=== PATIENT | female | born 1965 | race Caucasian/White ===

== ENCOUNTER → 2018-04-25 17:15 | Outpatient (CLI) | payer BC, SELFPAY | PROVIDERS: PCP Family Medicine; Visit Provider Specialist | DX: G47.30 Sleep apnea, unspecified (principal); R06.83 Snoring; G47.33 Obstructive sleep apnea (adult) (pediatric) | CPT/HCPCS: 95806 ==

== ENCOUNTER → 2019-12-11 14:21 | Outpatient (CLI) | payer OTHER, SELFPAY ==
[2019-12-11 15:01] LABS: Basophils % 0.6 % (0.1-2.0); Eosinophils # 0.1 K/mm3 (0.0-0.4); Eosinophils % 0.8 % (0.1-12.0); Hematocrit 45.2 % (37.0-47.0); Hemoglobin 15.2 g/dL (12.2-16.2); Lymphocytes # 2.4 K/mm3 (0.7-4.5); Lymphocytes % 32.4 % (10-50); Mean Corpuscular HGB Conc 33.7 g/dL (31.8-35.4); Mean Corpuscular Hemoglobin 30.6 pg (27.0-31.2); Mean Platelet Volume 8.5 fl (7.4-10.4); Monocytes # 0.3 K/mm3 (0.1-1.0); Monocytes % 3.9 % (1.7-9.3); Neutrophils # 4.6 K/mm3 (1.8-7.8); Neutrophils % 62.2 % (37.0-80.0); Platelet Count 189 K/mm3 (142-424); Red Blood Count 4.96 M/mm3 (4.20-5.40); Red Cell Distribution Width 13.1 % (11.5-17.5); White Blood Count 7.3 K/mm3 (4.8-10.8)
[2019-12-11 17:27] LABS: Adenovirus,PCR Not Detected (NotDetected); Bordetella Pertussis Not Detected (NotDetected); Chlamydophila Pneumoniae, PCR Not Detected (NotDetected); Coronavirus 19, PCR Not Detected (NotDetected); Coronavirus 229E Not Detected (NotDetected); Coronavirus NL63 Not Detected (NotDetected); Coronavirus OC43 Not Detected (NotDetected); Coronovirus HKU1,PCR Not Detected (NotDetected); Human Metapneumovirus Not Detected (NotDetected); Influenza A, PCR Not Detected (NotDetected); Influenza AH1, 2009 Not Detected (NotDetected); Influenza AH1, PCR Not Detected (NotDetected); Influenza AH3,PCR Not Detected (NotDetected); Influenza B, PCR Not Detected (NotDetected); Mycoplasma Pneumoniae, PCR Not Detected (NotDetected); Parainfluenza 1, PCR Not Detected (NotDetected); Parainfluenza 2, PCR Not Detected (NotDetected); Parainfluenza 3, PCR Not Detected (NotDetected); Parainfluenza 4, PCR Not Detected (NotDetected); Respiratory Syncytial Virus Not Detected (NotDetected); Rhinovirus/Enterovirus Not Detected (NotDetected)
== END ==
PROVIDERS: PCP Family Medicine; Visit Provider Nurse Practitioner Family
DX: Z03.818 Encounter for observation for suspected exposure to other biological agents ruled out (principal)
CPT/HCPCS: 85025; 87581; 87633; 87798; U0003

== ENCOUNTER → 2020-09-09 11:58 | Outpatient (CLI) | payer BC, SELFPAY ==
[2020-09-09 13:18] LABS: Adenovirus,PCR Not Detected (NotDetected); Bordetella Pertussis Not Detected (NotDetected); Chlamydophila Pneumoniae, PCR Not Detected (NotDetected); Coronavirus 19, PCR Not Detected (NotDetected); Coronavirus 229E Not Detected (NotDetected); Coronavirus NL63 Not Detected (NotDetected); Coronavirus OC43 Not Detected (NotDetected); Coronovirus HKU1,PCR Not Detected (NotDetected); Human Metapneumovirus Not Detected (NotDetected); Influenza A, PCR Not Detected (NotDetected); Influenza AH1, 2009 Not Detected (NotDetected); Influenza AH1, PCR Not Detected (NotDetected); Influenza AH3,PCR Not Detected (NotDetected); Influenza B, PCR Not Detected (NotDetected); Mycoplasma Pneumoniae, PCR Not Detected (NotDetected); Parainfluenza 1, PCR Not Detected (NotDetected); Parainfluenza 2, PCR Not Detected (NotDetected); Parainfluenza 4, PCR Not Detected (NotDetected); Respiratory Syncytial Virus Not Detected (NotDetected); Rhinovirus/Enterovirus Not Detected (NotDetected)
[2020-09-09 13:31] LABS: Basophils # 0.1 K/mm3 (0-0.2); Basophils % 1.3 % (0.1-2.0); Eosinophils # 0.2 K/mm3 (0.0-0.4); Eosinophils % 2.9 % (0.1-12.0); Hematocrit 45.6 % (37.0-47.0); Hemoglobin 15.6 g/dL (12.2-16.2); Lymphocytes # 1.7 K/mm3 (0.7-4.5); Lymphocytes % 32.5 % (10-50); Mean Corpuscular HGB Conc 34.1 g/dL (31.8-35.4); Mean Corpuscular Hemoglobin 30.6 pg (27.0-31.2); Mean Corpuscular Volume 89.7 fl (81-99); Mean Platelet Volume 8.8 fl (7.4-10.4); Monocytes # 0.3 K/mm3 (0.1-1.0); Monocytes % 6.4 % (1.7-9.3); Neutrophils % 56.8 % (37.0-80.0); Platelet Count 173 K/mm3 (142-424); Red Blood Count 5.09 M/mm3 (4.20-5.40); Red Cell Distribution Width 13.3 % (11.5-17.5); White Blood Count 5.3 K/mm3 (4.8-10.8)
[2020-09-09 15:38] LABS: Parainfluenza 3, PCR Detected (NotDetected)
== END ==
PROVIDERS: PCP Family Medicine; Visit Provider Nurse Practitioner Family
DX: Z20.822 Contact with and (suspected) exposure to COVID-19 (principal); J12.2 Parainfluenza virus pneumonia
CPT/HCPCS: 36415; 85025; 87581; 87633; 87798

== ENCOUNTER 2020-09-10 14:23 | Emergency (ER) | payer BC, SELFPAY ==
[2020-09-10 14:24] VITALS: BP 187/100; PULSE 97; RESP 18; TEMP 37.1; O2SAT 96; BMI 25.8
[2020-09-10 14:43] VITALS: BP 171/100; PULSE 97; RESP 16; TEMP 37.1; O2SAT 97; BMI 25.8
--- NOTE | 2020-09-10 15:10 | HMH.EDUTC ---
[facility] [place] Clinical Impression: Lower back pain Qualifiers: Chronicity: unspecified Back pain laterality: right Sciatica presence: with sciatica Sciatica laterality: sciatica of right side Qualified Code(s): M54.41 - Lumbago with sciatica, right side Disposition: Home, Self-Care Condition on Discharge: Good Instructions: Sciatica, DI for Sciatica, DI for Back Pain With Sciatica, Methocarbamol, Etodolac Additional Instructions: *Etodalac every 8 hours with meal as needed for pain/inflammation *Not additional anti-inflammatory like Ibuprofen motrin, aleve, advil with the above amount of Etodolac. You can still take Tylenol every 4 hours as needed if you need something else for pain *Ice 20 minutes every 2 hours for the first 48 hours after the initial injury followed by moist heat every 20 minutes 3-4 times a day to affected area *Muscle relaxer as prescribed as needed for muscle spasms but remember, it WILL cause drowsiness You cannot take it and drive, operate machinery or care for small children. *Keep this area active, no movement leads to more stiffness, However take it easy and avoid heavy lifting pushing or pulling *Follow up with you family doctor if no improvement for further treatment Soaks in warm water with epson salt may help with pain and muscle aches Return if needed Straight to ER if any life threatening symptoms Prescriptions: Etodolac 200 mg PO Q8HP PRN #15 cap PRN Reason: Moderate Pain Transmission Status: Received by [id number] methocarbamoL [Methocarbamol 500mg Tablet] 500 mg PO BID PRN #10 tab PRN Reason: Muscle Spasm Transmission Status: Received by [id number] Benzonatate [Tessalon Perle 100mg Cap*] 100 mg PO TID PRN #15 cap PRN Reason: Cough Transmission Status: Received by [id number] Referrals: Blake Lantigua MD [Primary Care Provider] - Time of Disposition: 15:21 Medical Decision Making - Saulo Inquiry Pt receiving controlled substance: No Saulo was queried for this patient: No Vital Signs: 09/10/20 14:24 09/10/20 14:43 09/10/20 15:19 Temperature 98.7 F 98.7 F 98.7 F Temperature Source Oral Oral Pulse Rate 97 H Pulse Rate [Right] 97 H 97 H Respiratory Rate 18 16 18 Blood Pressure 171/100 H Blood Pressure [Right Arm] 187/100 H 171/100 H Blood Pressure Mean [Right Arm] 129 123 02 Sat by Pulse Oximetry 96 97 Oxygen Delivery Method Room Air Orders (Tests/Meds): ED MEDICATIONS Discontinued Medications Generic Name Dose Route Start Last Admin Trade Name Vivek PRN Reason Stop Dose Admin Methylprednisolone Sodium Succinate 125 mg 09/10/20 15:18 09/10/20 15:18 Methylprednisolone Sod Succ 125mg Vial IM 09/10/20 15:19 125 mg ONCE ONE Administration Medical Decision Narrative: Discussed Xray of Lspine due to over the age of 51 and patient declined State that she would follow up with her PCP and get a xray if no improvement after medication Patient reports that she took Ibuprofen about 2 hours prior to arrival [facility] [place] - General Stated complaint: muscle pain in back/leg Time Seen by Provider: 09/10/20 15:10 Mode of Arrival: Ambulatory Source of Information: Patient Limitations: No Limitations Description of Symptoms (Recalled from Triage Doc. by RN): pt c/o lower back pain radiating down her R leg. the pain occured after a bad coughing episode yesterday evening. pt is ambulating, but reports pain 08/22. HEENT Symptoms (Recalled from RN notes): No Resp Symptoms (Recalled from RN notes): No Skin Symptoms (Recalled from RN notes): No MS Symptoms (Recalled from RN notes): Yes (lower back pain radiating down R leg) Functional Status (Recalled from RN notes): na - History of Present Illness Provider Complaint: Patient states that she has had a cold and had a bad cough States that she was coughing yesterday when she felt like she pulled something in her right lower back area State that then she started having achy
[2020-09-10 15:19] VITALS: BP 171/100; PULSE 97; RESP 18; TEMP 37.1
== END 2020-09-10 15:36 | disposition home or self-care (01) ==
PROVIDERS: Emergency Provider Nurse Practitioner; PCP Family Medicine
DX: M54.41 Lumbago with sciatica, right side (principal); F17.210 Nicotine dependence, cigarettes, uncomplicated; B34.8 Other viral infections of unspecified site
CPT/HCPCS: 96372; 99202; G0463

== ENCOUNTER 2020-09-13 11:58 | Emergency (ER) | payer BC, SELFPAY ==
[2020-09-13 11:58] VITALS: BP 185/105; PULSE 97; RESP 16; TEMP 36.8; O2SAT 97; BMI 25.8
[2020-09-13 13:17] VITALS: PULSE 97; RESP 16; TEMP 36.8; O2SAT 97; BMI 25.8
--- NOTE | 2020-09-13 13:22 | HMH.EDUTC ---
[facility] [place]position Clinical Impression: Low back pain Qualifiers: Chronicity: acute Back pain laterality: left Sciatica presence: with sciatica Sciatica laterality: sciatica of left side Qualified Code(s): M54.42 - Lumbago with sciatica, left side Disposition: Home, Self-Care Condition on Discharge: Good Instructions: Low Back Pain, DI for Low Back Pain Additional Instructions: Continue taking the oral steroids that you are on. Stop the etodolac and the methocarbimol (robaxin). Take the naproxen and the cyclobenzaprine instead. The cyclobenzaprine will make you drowsy, so don't operate heavy machinery or drive a car afterwards. Follow up with your regular doctor. No heavy lifting. No twisting. GO TO THE ER FOR ANY WORSENING SYMPTOMS OR CONCERN, ESPECIALLY BOWEL OR BLADDER ISSUES, SADDLE AREA NUMBNESS, FEVER, ETC Prescriptions: Cyclobenzaprine HCl [Cyclobenzaprine 10mg Tab] 10 mg PO BIDP PRN #30 tab PRN Reason: Muscle Spasm Transmission Status: Received by [id number] Naproxen [Naproxen 500mg tab] 500 mg PO BIDP PRN #30 tab PRN Reason: Moderate Pain Transmission Status: Received by [id number] Referrals: Blake Lantigua MD [Primary Care Provider] - Time of Disposition: 14:10 Medical Decision Making - Medical Records Medical records reviewed: No: I reviewed the patient's medical records. - Saulo Inquiry Pt receiving controlled substance: No Vital Signs: 09/13/20 11:58 09/13/20 13:17 09/13/20 14:26 Temperature 98.2 F 98.2 F 98.3 F Temperature Source Oral Oral Pulse Rate 85 Pulse Rate [Radial] 97 H 97 H Respiratory Rate 16 16 16 Blood Pressure 164/100 H Blood Pressure [Right Arm] 185/105 H Blood Pressure Mean [Right Arm] 131 02 Sat by Pulse Oximetry 97 97 Orders (Tests/Meds): ED MEDICATIONS Discontinued Medications Generic Name Dose Route Start Last Admin Trade Name Freq PRN Reason Stop Dose Admin Ketorolac Tromethamine 60 mg 09/13/20 14:00 09/13/20 14:15 Ketorolac 60mg/2ml Vial IM 09/13/20 14:01 60 mg ONCE ONE Administration [facility] [place] HPI - General Stated complaint: back pain Time Seen by Provider: 09/13/20 13:23 Mode of Arrival: Ambulatory Source of Information: Patient Limitations: No Limitations Description of Symptoms (Recalled from Triage Doc. by RN): pt c/o pain in her lower R back that radiates to her R hip and leg. pt was seen here a few days ago and treated with methocarbomol, steroids and etodolac. pt states the pain is getting worse and feels like electrical shocks. HEENT Symptoms (Recalled from RN notes): No Resp Symptoms (Recalled from RN notes): No Skin Symptoms (Recalled from RN notes): No MS Symptoms (Recalled from RN notes): Yes (R lower back pain radiating to her hip and leg.) Functional Status (Recalled from RN notes): na - History of Present Illness Provider Complaint: She c/o continued low back pain. She states that the steroid shot that she got here 3 days ago did help, but her pain returned and the oral medication that she is on is not working very well. - Related Data Home Medications Medication Instructions Recorded Confirmed amlodipine 2.5 mg tablet 2.5 mg PO DAILY 11/29/18 04/24/19 atorvastatin 80 mg tablet 80 mg PO DAILY 11/29/18 04/24/19 isosorbide mononitrate 60 mg 60 mg PO DAILY 11/29/18 04/24/19 tablet,extended release 24 hr Previous Rx's Medication Instructions Recorded sulfamethoxazole 800 1 tab PO Q12H 10 Days #20 tab 04/24/19 mg-trimethoprim 160 mg tablet Benzonatate [Tessalon Perle 100mg 100 mg PO TID PRN #15 cap 09/10/20 Cap*] Etodolac 200 mg PO Q8HP PRN #15 cap 09/10/20 methocarbamoL [Methocarbamol 500mg 500 mg PO BID PRN #10 tab 09/10/20 Tablet] Cyclobenzaprine HCl 10 mg PO BIDP PRN #30 tab 09/13/20 [Cyclobenzaprine 10mg Tab] Naproxen [Naproxen 500mg tab] 500 mg PO BIDP PRN #30 tab 09/13/20 Allergies Allergy/AdvReac Type Severity Nelsonia
--- NOTE | 2020-09-13 13:33 | XR_ITS ---
PROCEDURE INFORMATION: Exam: XR Lumbosacral Spine Exam date and time: 09/13/2020 1:33 PM Age: 55 years old Clinical indication: Injury or trauma; Fall; Blunt trauma (contusions or hematomas); Injury details: Patient fell one week ago, back pain started last . ; Additional info: Low back pain TECHNIQUE: Imaging protocol: XR of the lumbosacral spine. Views: 2 or 3 views. COMPARISON: No relevant prior studies available. FINDINGS: Bones/joints: There is no evidence of acute fracture.There is no evidence of malalignment or dislocation. Intervertebral disc spaces are maintained. Mild anterior osteophyte formation L1 through L5. Soft tissues: Unremarkable. IMPRESSION: 1. There is no evidence of acute fracture.There is no evidence of malalignment or dislocation. 2. Intervertebral disc spaces are maintained.
[2020-09-13 14:26] VITALS: BP 164/100; PULSE 85; RESP 16; TEMP 36.8
== END 2020-09-13 14:26 | disposition home or self-care (01) ==
PROVIDERS: Emergency Provider Nurse Practitioner Family; PCP Family Medicine
DX: M54.42 Lumbago with sciatica, left side (principal); E78.5 Hyperlipidemia, unspecified; I10 Essential (primary) hypertension; I25.10 Atherosclerotic heart disease of native coronary artery without angina pectoris; F17.210 Nicotine dependence, cigarettes, uncomplicated
CPT/HCPCS: 72100; 96372; 99202; G0463

== ENCOUNTER → 2020-09-23 11:20 | Outpatient (CLI) | payer BC, SELFPAY ==
--- NOTE | 2020-09-23 11:32 | XR_ITS ---
PROCEDURE: XR TIBIA FIBULA RT 2V CLINICAL INDICATION: BACK PAIN COMPARISON: No exams were available for comparison FINDINGS: No fracture or dislocation. No lytic or blastic change. There is normal mineralization. The joint spaces are well-preserved. No significant degenerative/arthritic changes. No erosive changes evident. Other findings:None. IMPRESSION: No acute findings. Dictated by: You Gupta MD 09/23/2020 12:01 You Gupta MD in [place] 09/23/2020 12:01
--- NOTE | 2020-09-23 11:32 | XR_ITS ---
PROCEDURE: XR HIP RT 2-3V W/PELVIS CLINICAL INDICATION: BACK PAIN Right hip pain COMPARISON: CR XR TIBIA FIBULA RT 2V from 09/23/2020 FINDINGS: No fracture or dislocation is evident. No significant degenerative change. No lytic or blastic change. Unremarkable soft tissues.. There is an oval sclerotic density involving the femoral neck distally and inferiorly at 17 8 mm and may be due to a bone island. Small sclerotic foci right acetabulum at 8 mm, left femoral neck at 5 mm and the right superior pubic ramus region medially at 5 mm may also be due to a bone island. IMPRESSION: No acute finding. Scattered sclerotic foci, possible bone islands of both proximal femurs, right acetabulum, and right pubic region. Consider follow-up may confirm stability as small blastic metastasis are not totally excluded. Bone scan may provide further evaluation. Alternatively, follow-up radiograph in 3 months could confirm short term stability.. Dictated by: You Gupta MD 09/23/2020 12:01 You Gupta MD in [place] 09/23/2020 12:01
== END ==
PROVIDERS: PCP Family Medicine; Visit Provider Family Medicine
DX: M54.5 Low back pain (principal); M25.551 Pain in right hip; M79.661 Pain in right lower leg
CPT/HCPCS: 73502; 73590

== ENCOUNTER → 2020-09-30 08:56 | Outpatient (CLI) | payer BC, SELFPAY ==
--- NOTE | 2020-09-30 09:00 | NM_ITS ---
PROCEDURE: NM BONE SCAN WHOLE BODY CLINICAL INDICATION: RT HIP PAIN Sclerotic lesions on x-ray COMPARISON: CR XR HIP RT 2-3V W/PELVIS from 09/23/2020 FINDINGS: Dose: 25.5 mCi Tc MDP Anterior and posterior images are obtained of the entire skeleton. Recent radiograph demonstrated sclerotic foci within the pelvis and hips. These do not demonstrate increased activity. There is a small focus of increased activity in the patella which is nonspecific on the left IMPRESSION: Unremarkable bone scan. No abnormal activity evident within the pelvis. Sclerotic foci noted on the plain film likely related to bone islands. Dictated by: You Gupta MD 09/30/2020 17:16 You Gupta MD in [place] 09/30/2020 17:16
== END ==
PROVIDERS: PCP Family Medicine; Visit Provider Nurse Practitioner Family
DX: M25.551 Pain in right hip (principal)
CPT/HCPCS: 78306; A9503

== ENCOUNTER → 2020-11-07 10:44 | Outpatient (CLI) | payer BC, SELFPAY ==
--- NOTE | 2020-11-07 10:51 | MR_ITS ---
PROCEDURE INFORMATION: Exam: MR Pelvis Without and With Contrast Exam date and time: 11/07/2020 10:51 AM Age: 55 years old Clinical indication: Pain and abnormal findings; Abnormal imaging test; Patient HX: PT c/p bilateral hip pain, worse on RT with no known injury or trauma. Prior imaging showed bone island. ; Additional info: Bilateral hip pain; Bone island TECHNIQUE: Imaging protocol: Magnetic resonance images of the pelvis without and with intravenous contrast. Contrast material: ISOVUE; Contrast volume: 15 ml; Contrast route: IV; COMPARISON: 1. NM BONE SCAN WHOLE BODY 09/30/2020 12:52 PM 2. CR XR HIP RT 2-3V W/PELVIS 09/23/2020 11:42 AM FINDINGS: Intraperitoneal space: No significant free fluid. Reproductive: A fibroid in the left side of the uterus measures 7 mm (series 4/image 23). Bones/joints: There are multiple benign bone islands present located in the right supra-acetabular region, bilateral posterior acetabula, right femoral neck, and left femoral head. There is no fracture or suspicious bone lesion. A mild joint effusion involves the right hip. Soft tissues: Low-grade partial-thickness tearing involves the bilateral hamstring tendons at the origins. A mild amount of fluid is present in the left greater trochanteric bursa. Low-grade partial-thickness tearing involves the left gluteus minimus tendon. Mild tendinosis involves the right gluteus minimus tendon. IMPRESSION: 1. Low-grade partial-thickness tears of the bilateral hamstring tendons. 2. Low-grade partial-thickness tear of the left gluteus minimus tendon. 3. Mild right gluteus minimus tendinosis. 4. Nonspecific mild right hip joint effusion. 5. Mild left greater trochanteric bursitis. 6. Multiple benign bone islands without suspicious bone lesion.
== END ==
PROVIDERS: PCP Family Medicine; Visit Provider Orthopaedic Surgery
DX: M16.11 Unilateral primary osteoarthritis, right hip (principal); M70.61 Trochanteric bursitis, right hip; M89.8X9 Other specified disorders of bone, unspecified site
CPT/HCPCS: 72197; A9576

== ENCOUNTER 2021-02-17 08:13 | Emergency (ER) | payer BC, SELFPAY ==
[2021-02-17] VITALS (9 sets, daily range): BP systolic 142–178; BP diastolic 77–107; PULSE 80–102; RESP 15–20; TEMP 36.5; O2SAT 95–99; BMI 28.2
--- NOTE | 2021-02-17 08:22 | PC.NURSE ---
pt to CT
--- NOTE | 2021-02-17 08:25 | CT_ITS ---
FINAL REPORT TECHNIQUE: Axial CT images were performed through the head. Coronal reformatted images were submitted. This study was performed with techniques to keep radiation doses as low as reasonably achievable (ALARA). Individualized dose reduction techniques using automated exposure control or adjustment of mA and/or kV according to the patient's size were employed. CLINICAL HISTORY: L sided numbness, STROKE PROTOCOL FINDINGS: The ventricles are normal in size. There is no evidence of hemorrhage. There is no mass or edema identified. There is no abnormal extra-axial fluid seen. The sinuses are well aerated. IMPRESSION: No acute intracranial process. Reviewed, Interpreted and Dictated by Colton Brennan MD Transcribed by Cyn Bynum Authenticated by Colton Brennan MD on 02/17/2021 08:50:54 AM [facility]
--- NOTE | 2021-02-17 08:32 | XR_ITS ---
FINAL REPORT CLINICAL HISTORY: cough FINDINGS: SINGLE VIEW CHEST The heart is normal in size. The mediastinum is unremarkable. There is atelectasis at the right lung base. There is no pneumothorax. IMPRESSION: Right basilar atelectasis. Reviewed, Interpreted and Dictated by Colton Brennan MD Transcribed by Asiya Vang Authenticated by Colton Brennan MD on 02/17/2021 10:13:10 AM [facility]
--- NOTE | 2021-02-17 08:33 | CT_ITS ---
FINAL REPORT CLINICAL HISTORY: weakness FINDINGS: TECHNIQUE: Thin section axial CT with contrast with multiplanar reconstruction. This study was performed with techniques to keep radiatio doses as low as reasonably achievable (ALARA). Individualized dose reduction techniques using automated exposure control or adjustments of mA and/or kV according to the patient's size were employed. CTA HEAD FINDINGS: No aneurysm is seen. Major intracranial vessels are patent without significant stenosis. . IMPRESSION: No definite acute abnormality. Consider diffusion-weighted MRI. Reviewed, Interpreted and Dictated by Colton Brennan MD Transcribed by Cyn Bynum Authenticated by Colton Brennan MD on 02/17/2021 09:57:52 AM [facility]
--- NOTE | 2021-02-17 08:33 | CT_ITS ---
FINAL REPORT CLINICAL HISTORY: weakness FINDINGS: CTA NECK NASCET criteria and technique was utilized during interpretation. Aortic arch: Arch shows no significant narrowing. Great vessel origins are widely patent . Right carotid: No significant stenosis is seen of the cervical common or internal carotid artery. There are mild to moderate vascular calcifications at the origin of the internal carotid artery. Left carotid: No significant stenosis is seen of the cervical common or internal carotid artery . Vertebrals: Right vertebral artery is dominant. Vertebral arteries are patent. IMPRESSION: No significant stenosis. Reviewed, Interpreted and Dictated by Colton Brennan MD Transcribed by Cyn Bynum Authenticated by Colton Brennan MD on 02/17/2021 10:08:44 AM [facility]
--- NOTE | 2021-02-17 08:35 | ECG_ITS ---
APPROVED REPORT Exam: Resting ECG HR:97 bpm ECG Measurements Heart Rate 97 AXES SD 162 P 63 QRSd 82 QRS 69 QT 368 T 40 QTc 467 Conclusion Normal sinus rhythm Left atrial abnormality ST abnormality, ? lyte effect Abnormal ECG Electronically signed by : Claudio Denney MD 02/19/2021 14:33:02
[2021-02-17 09:03] LABS: Basophils # 0.1 K/mm3 (0-0.2); Basophils % 1.4 % (0.1-2.0); Eosinophils # 0.1 K/mm3 (0.0-0.4); Hematocrit 46.2 % (37.0-47.0); Hemoglobin 15.1 g/dL (12.2-16.2); Lymphocytes % 27.5 % (10-50); Mean Corpuscular HGB Conc 32.7 g/dL (31.8-35.4); Mean Corpuscular Hemoglobin 31.2 pg (27.0-31.2); Mean Corpuscular Volume 95.5 fl (81-99); Mean Platelet Volume 9.1 fl (7.4-10.4); Monocytes # 0.4 K/mm3 (0.1-1.0); Monocytes % 5.5 % (1.7-9.3); Neutrophils # 4.8 K/mm3 (1.8-7.8); Neutrophils % 64.6 % (37.0-80.0); Platelet Count 200 K/mm3 (142-424); Red Blood Count 4.83 M/mm3 (4.20-5.40); Red Cell Distribution Width 12.9 % (11.5-17.5); White Blood Count 7.4 K/mm3 (4.8-10.8)
[2021-02-17 09:09] LABS: Activated Partial Thrombo Time 25.9 seconds (22.8-30.6); Prothrombin Time 10.3 seconds (10.1-12.5)
[2021-02-17 09:12] LABS: Alanine Aminotransferase 23 U/L (12-78); Albumin Level 4.6 g/dl (3.5-5.0); Albumin/Globulin Ratio 1.7 (1.1-1.8); Alkaline Phosphatase 72 U/L (38-126); Anion Gap 9.5 mEq/L (5-15); Aspartate Amino Transferase 30 U/L (14-36); Bilirubin,Total 0.4 mg/dl (0.2-1.3); Blood Urea Nitrogen 10 mg/dl (7-17); Calcium 9.5 mg/dl (8.4-10.2); Carbon Dioxide 29 mmol/L (22.0-30.0); Chloride 105 mmol/L (98-107); Creatinine Clearance Estimated 134 mL/min (50-200); Estimated Glomerular Filt Rate 104 ml/min (>60); GFR (African American) 126 ML/MIN (>60); Globulin 2.7 g/dL (1.3-3.2); Glucose 103 mg/dl (74-100); Potassium 3.5 mmoL/L (3.5-5.1); Sodium 140 mmol/L (136-145); Total Protein,Serum 7.3 g/dl (6.3-8.2)
[2021-02-17 09:24] LABS: NT Pro Brain Natriuretic Pep. 25.7 pg/mL (0-125)
[2021-02-17 09:32] LABS: Troponin I < 0.01 ng/ml (0.00-0.034)
--- NOTE | 2021-02-17 09:34 | HMH.EDGENADL ---
ED Disposition Clinical Impression: Atypical migraine, Hypertensive urgency Disposition: Home, Self-Care Condition on Discharge: Good Instructions: DI for Migraine Referrals: Blake Lantigua MD [Primary Care Provider] - - Critical Care Critical Care Time: No Attestation: On 02/17/21, the high probability of a clinically significant, sudden or life threatening deterioration of the following system(s) required my full and direct attention, intervention and personal management. The time I documented below is in addition to time spent performing reported procedures but includes the following listed in this critical care notation. Medical Decision Making - Medical Records Medical records reviewed: Yes: I reviewed the patient's medical records. - Saulo Inquiry Pt receiving controlled substance: No Vital Signs: 02/17/21 08:14 02/17/21 08:37 02/17/21 08:54 Temperature 97.7 F Temperature Source Oral Pulse Rate 89 84 Pulse Rate [Right Radial] 102 H Respiratory Rate 18 17 18 Blood Pressure 178/99 H 167/104 H Blood Pressure [Right Arm] 174/107 H Blood Pressure Mean 127 125 Blood Pressure Mean [Right Arm] 129 Blood Pressure Source [Right Arm] Automatic Cuff Blood Pressure Position [Right Arm] Sitting 02 Sat by Pulse Oximetry 98 98 97 Oxygen Delivery Method Room Air 02/17/21 09:00 02/17/21 09:54 02/17/21 10:01 Temperature Temperature Source Pulse Rate 91 H 84 90 Pulse Rate [Right Radial] Respiratory Rate 17 19 18 Blood Pressure 142/77 H 165/101 H 164/99 H Blood Pressure [Right Arm] Blood Pressure Mean 98 122 120 Blood Pressure Mean [Right Arm] Blood Pressure Source [Right Arm] Blood Pressure Position [Right Arm] 02 Sat by Pulse Oximetry 98 99 97 Oxygen Delivery Method 02/17/21 10:31 02/17/21 11:01 Temperature Temperature Source Pulse Rate 80 83 Pulse Rate [Right Radial] Respiratory Rate 20 15 Blood Pressure 164/96 H 146/87 H Blood Pressure [Right Arm] Blood Pressure Mean 118 116 Blood Pressure Mean [Right Arm] Blood Pressure Source [Right Arm] Blood Pressure Position [Right Arm] 02 Sat by Pulse Oximetry 97 95 Oxygen Delivery Method - Lab Data Lab Results 02/17/21 08:47: WBC 7.4, RBC 4.83, Hgb 15.1, Hct 46.2, MCV 95.5, MCH 31.2, MCHC 32.7, RDW 12.9, Plt Count 200, MPV 9.1, Neut % (Auto) 64.6, Lymph % (Auto) 27.5, Barnes % (Auto) 5.5, Eos % (Auto) 1.0, Baso % (Auto) 1.4, Neut # (Auto) 4.8, Lymph # (Auto) 2.0, Barnes # (Auto) 0.4, Eos # (Auto) 0.1, Baso # (Auto) 0.1 02/17/21 08:47: PT 10.3, INR 0.90, APTT 25.9 02/17/21 08:47: Sodium 140, Potassium 3.5, Chloride 105, Carbon Dioxide 29, Anion Gap 9.5, BUN 10, Creatinine 0.60, Estimated Creat Clear 134, Estimated GFR 104, Est GFR ( Amer) 126, Glucose 103 H, Calcium 9.5, Total Bilirubin 0.4, AST 30, ALT 23, Alkaline Phosphatase 72, Troponin I < 0.01, NT-Pro-B Natriuret Pep 25.7, Total Protein 7.3, Albumin 4.6, Globulin 2.7, Albumin/Globulin Ratio 1.7, TSH 0.61 02/17/21 09:30: Urine Color Yellow, Urine Appearance Clear, Urine pH 7.0, Ur Specific [place] 1.010, Urine Protein Negative, Urine Glucose (UA) Negative, Urine Ketones Negative, Urine Blood Trace-i, Urine Nitrate Negative, Urine Bilirubin Negative, Urine Urobilinogen 0.2, Ur Leukocyte Esterase Negative, Urine RBC Occasional, Urine WBC None, Ur Squamous Epith Cells None, Urine Bacteria Trace 02/17/21 09:41: SARS-CoV-2 (PCR) Detected A, Influenza A Untype (PCR) Not detected, Influenza Type B (PCR) Not detected Result diagrams: 02/17/21 08:47 02/17/21 08:47 Orders (Tests/Meds): ED MEDICATIONS Discontinued Medications Generic Name Dose Route Start Last Admin Trade Name Freq PRN Reason Stop Dose Admin Hydralazine HCl 10 mg 02/17/21 08:33 02/17/21 08:50 Hydralazine 20mg/Ml Vial IV 02/17/21 08:34 10 mg ONCE ONE Administration Iopamidol 100 ml 02/17/21 09:37 02/17/21 09:38 Iopamidol-370 (76%);100ml Bottle
[2021-02-17 09:35] LABS: Microscopic, Urine URINE MICROSCOPIC (MICROSCOPIC)
[2021-02-17 09:42] LABS: Appearance,Urine CLEAR (Clear); Bilirubin,Urine Negative (Negative); Blood, Urine TRACE-I (Negative); Color,Urine YELLOW (Yellow); Glucose,Urine (UA) Negative (Negative); Ketones,Urine Negative (Negative); Leukocyte Esterase,Urine Negative (Negative); Nitrate,Urine Negative (Negative); Protein,Urine Negative (Negative); Urobilinogen,Urine 0.2 EU/dl (0.2)
[2021-02-17 09:42] LABS: Thyroid Stimulating Hormone 0.61 uIU/mL (0.465-4.68)
[2021-02-17 09:58] LABS: Influenza A, PCR Not Detected (NotDetected); Influenza B, PCR Not Detected (NotDetected)
[2021-02-17 10:08] LABS: RBC,Urine Occasional #/hpf (0-3)
[2021-02-17 10:09] LABS: Bacteria,Urine Trace /lpf
[2021-02-17 11:02] LABS: Coronavirus 19, PCR Detected (NotDetected)
== END 2021-02-17 11:20 | disposition home or self-care (01) ==
PROVIDERS: Emergency Provider Emergency Medicine; PCP Family Medicine
DX: G43.909 Migraine, unspecified, not intractable, without status migrainosus (principal); U07.1 COVID-19; I16.0 Hypertensive urgency; I25.10 Atherosclerotic heart disease of native coronary artery without angina pectoris; I10 Essential (primary) hypertension
CPT/HCPCS: 70450; 70496; 70498; 71045; 80053; 81001; 83880; 84443; 84484; 85025; 85610; 85730; 93005; 96374; 99283; C9803; Q9967; U0003; U0005

== ENCOUNTER 2022-09-30 10:00 | Inpatient (IN) | payer BC, SELFPAY ==
[2022-09-30] VITALS (27 sets, daily range): BP systolic 86–195; BP diastolic 46–111; PULSE 50–94; RESP 14–20; TEMP 36.2–36.6; O2SAT 92–100; BMI 29.0
--- NOTE | 2022-09-30 10:00 | ECG_ITS ---
APPROVED REPORT Exam: Resting ECG HR:88 bpm ECG Measurements Heart Rate 88 AXES [place] 184 P 71 QRSd 85 QRS 74 QT 375 T 69 QTc 420 Conclusion SINUS RHYTHM POSSIBLE LEFT ATRIAL ENLARGEMENT [-0.1mV P-WAVE IN V1/V2] NONSPECIFIC T-WAVE ABNORMALITY BORDERLINE ECG UNCONFIRMED REPORT Electronically signed by : Claudio Denney MD 10/01/2022 21:02:47
--- NOTE | 2022-09-30 10:12 | PC.NURSE ---
DR REDDY AT BEDSIDE
--- NOTE | 2022-09-30 10:20 | XR_ITS ---
FINAL REPORT CLINICAL HISTORY: dyspnea COMPARISON: None FINDINGS: SINGLE VIEW CHEST The heart size is enlarged. The mediastinum is within normal limits. No acute pulmonary abnormality is identified. There is no evidence of pneumothorax. The bony thorax is intact. IMPRESSION: No acute cardiopulmonary process. Reviewed, Interpreted and Dictated by Ananda Jasmine III, MD Transcribed by Ariane Mendes Authenticated and . [facility]
--- NOTE | 2022-09-30 10:22 | HMH.EDGENADL ---
Discharge Plan Disposition Patient Disposition: Admitted Chief Complaint: Chest Pain Prescriptions Prescriptions: No Action aspirin [Aspir-81] 81 mg Tablet,Delayed Release (Dr/Ec) 81 mg PO DAILY Referrals Follow up/Referrals: Blake Lantigua MD [Primary Care Provider] - See instructions Clinical Impressions Clinical Impression: Acute non-ST elevation myocardial infarction (NSTEMI) Discharge ED Provider: Rozina Reynolds General Adult HPI General Chief complaint: Chest Pain Stated complaint: chest pain Time Seen by Provider: 09/30/22 10:05 Mode of Arrival: Ambulatory Limitations: No Limitations Description of Symptoms (Recalled from ER Triage Doc. by RN): PT WITH C/O CHEST PAIN THAT STARTED YESTERDAY. PT REPORTS HIGH BLOOD PRESSURE YESTERDAY. PAIN WORSE TODAY, RADIATES TO RIGHT SIDE OF CHEST, BACK AND NECK. REPORTS INCREASED SHORTNESS OF BREATH. DENIES N/V, PT HAS TAKEN 3-81MG ASA AND NITRO X 3. History of Present Illness HPI narrative: Patient is a 57-year-old female here with chest pain. She has a history of known coronary artery disease had an OR in 2014 requiring 1 stent at [facility]. She states she is currently not on any anticoagulants or any antiplatelet agents that she has not followed up with a doctor in several years because she has not had any problems from that she states. She does claim to take a daily baby aspirin but is not on further therapy and takes no other medications. She states this pain woke her up from her sleep at 5 AM was substernal in nature radiating to her left shoulder and down her left arm associated with some mild dyspnea as well as diaphoresis. She did not give her self the ability to test whether not this was exertional. She did take 3 sublingual nitroglycerin around 530 this morning which resolved her pain almost completely took it from a 9 out of 10 down to a 2 out of 10 and allowed her to go back to sleep. She subsequently woke up few hours later and still was having significant pain this time moderate to severe in nature still. This prompted her to come to the emergency department. She took 3 x 81 mg baby aspirin's prior to arrival. She states her pain currently is a 6 out of 10. Related Data Home Medications Medication Instructions Recorded Confirmed aspirin 81 mg tablet,delayed 81 mg PO DAILY Heart Disease 09/30/22 09/30/22 release Allergies Allergy/AdvReac Type Severity Reaction Status Date / Time No Known Allergies Allergy Verified 11/13/20 10:55 [facility] Disclaimer: The information contained in this section may have been updated after the patient was seen, as this information can be updated by other users. Social History Smoking Status: Current every day smoker alcohol intake: current current occupational status: employed Travel in the last 8 weeks: None household members: family housing: house ROS Obtained: Yes All systems reviewed & no additional complaints except as documented Physical Exam General General appearance: alert Respiratory Respiratory exam: Present normal lung sounds bilaterally and respiratory distress Cardiovascular Cardiovascular exam: Present regular rate; Absent tachycardia Neurological Exam Neurological exam: Present alert and oriented X3 Medical Decision Making Saulo Inquiry Pt receiving controlled substance: No Vital Signs: 09/30/22 10:05 Temperature 97.7 F Temperature Source Oral Pulse Rate [Apical] 94 H Respiratory Rate 18 Blood Pressure [Right Arm] 195/111 H Blood Pressure Mean [Right Arm] 139 Blood Pressure Source [Right Arm] Automatic Cuff Blood Pressure Position [Right Arm] Sitting 02 Sat by Pulse Oximetry 99 Oxygen Delivery Method Room Air Lab Data Lab results reviewed: Yes I reviewed the patient's lab results. Lab Results 09/30/22 10:05: WBC 8.9, RBC 5.08, Hgb 14.7, Hct 46.5, MCV 91.5, MCH 29.0, MCHC 31.7 L, RDW 13.4, Plt Count 231, MPV 8.8, Neut % (Auto)
[2022-09-30 10:30] LABS: Basophils # 0.1 K/mm3 (0-0.2); Basophils % 0.5 % (0.1-2.0); Eosinophils # 0.1 K/mm3 (0.0-0.4); Eosinophils % 0.6 % (0.1-12.0); Hematocrit 46.5 % (37.0-47.0); Hemoglobin 14.7 g/dL (12.2-16.2); Lymphocytes # 2.3 K/mm3 (0.7-4.5); Lymphocytes % 26.3 % (10-50); Mean Corpuscular HGB Conc 31.7 g/dL (31.8-35.4); Mean Corpuscular Volume 91.5 fl (81-99); Mean Platelet Volume 8.8 fl (7.4-10.4); Monocytes # 0.4 K/mm3 (0.1-1.0); Monocytes % 4.4 % (1.7-9.3); Neutrophils # 6.1 K/mm3 (1.8-7.8); Neutrophils % 68.2 % (37.0-80.0); Platelet Count 231 K/mm3 (142-424); Red Blood Count 5.08 M/mm3 (4.20-5.40); Red Cell Distribution Width 13.4 % (11.5-17.5); White Blood Count 8.9 K/mm3 (4.8-10.8)
[2022-09-30 10:31] LABS: Chloride 104 mmol/L (98-107); Potassium 3.8 mmoL/L (3.5-5.1); Sodium 141 mmol/L (136-145)
[2022-09-30 10:34] LABS: Alanine Aminotransferase 28 U/L (12-78); Albumin Level 4.3 g/dl (3.5-5.0); Albumin/Globulin Ratio 1.3 (1.1-1.8); Alkaline Phosphatase 100 U/L (38-126); Anion Gap 12.8 mEq/L (5-15); Aspartate Amino Transferase 37 U/L (14-36); Bilirubin,Total 0.5 mg/dl (0.2-1.3); Blood Urea Nitrogen 10 mg/dl (7-17); Carbon Dioxide 28 mmol/L (22.0-30.0); Creatinine Clearance Estimated 101 mL/min (50-200); Estimated Glomerular Filt Rate 74 ml/min (>60); GFR (African American) 90 ML/MIN (>60); Globulin 3.2 g/dL (1.3-3.2); Magnesium 1.9 mg/dl (1.6-2.3); Total Protein,Serum 7.5 g/dl (6.3-8.2)
[2022-09-30 10:35] LABS: Activated Partial Thrombo Time 26.5 seconds (22.8-30.6); Calcium 9.9 mg/dl (8.4-10.2); Glucose 131 mg/dl (74-100); Prothrombin Time 9.8 seconds (10.1-12.5)
--- NOTE | 2022-09-30 10:37 | PC.NURSE ---
1025 NITRO GTT STARTED AT 10MCG/HR 3MLS/HR 1033 REASSESSMENT, REPORTS PAIN FREE. NITRO GTT REMAINS AT 3MLS/HR. DR. REDDY AT BEDSIDE AND AWARE AT THIS TIME
--- NOTE | 2022-09-30 10:59 | PC.NURSE ---
ROUNDED ON PT, REPORTS SLIGHT INCREASE IN CHEST PAIN, NITRO GTT INCREASED TO 20MCG/6MLS/HR. MD NOTIFIED B/P 107/67 HR 65
--- NOTE | 2022-09-30 11:07 | PC.NURSE ---
1107, ROUNDED ON PT, CHEST PAIN FREE, REPORTS HEADACHE. MD NOTIFIED, MEDICATED PER EMAR
[2022-09-30 11:08] LABS: D-Dimer 1.22 ug/mL (0.0-0.5)
[2022-09-30 11:28] LABS: Troponin I 0.29 ng/ml (0.00-0.034)
--- NOTE | 2022-09-30 11:28 | PC.NURSE ---
Dr. Reynolds notified with critical troponin
--- NOTE | 2022-09-30 11:29 | PC.NURSE ---
DR REDDY AT BEDSIDE TO REEVALUATE TO
--- NOTE | 2022-09-30 11:30 | PC.NURSE ---
DR REDDY SPEAKING WITH DR BAUM
--- NOTE | 2022-09-30 11:33 | PC.NURSE ---
DR REDDY AT BEDSIDE TO UPDATE PT
--- NOTE | 2022-09-30 11:37 | PC.NURSE ---
SPOKE WITH DR SINCLAIR FOR ADMISSION FOR DR JUAREZ, PT HAS NOT BEEN SEEN BY [facility] OFFICE SINCE 2019, PT WOULD BE NEW PT. ADMIT TO HOSPITALIST
--- NOTE | 2022-09-30 11:44 | PC.NURSE ---
PT PLACED IN GOWN, GROIN AND RIGHT RADIAL WRIST PREPPED FOR HEART CATH, CONSENT SIGNED AT THIS TIME
--- NOTE | 2022-09-30 11:46 | CA_ITS ---
APPROVED REPORT EXAM: Comprehensive 2D, Doppler, and color-flow Echocardiogram Fixture Maker: Maryanne Quiles RVT Ht: 5 ft 6 in Wt: 180lbs BSA: 1.91 BP: 195/111 mmHg Indications: CP,NSTEMI,CAD,SMOKER,HTN 2D Dimensions LVOT 2.07 cm (M/F) 1.5-2.5 LA Volume 14.80 mL LA Volume Index 7.75 mL/m2 (M/F) 16-34 M-Mode Dimensions RVDd 1.53 cm (0.9-2.6) LA Diam 3.61 cm (1.9-4.0) LVDd 5.27 cm (3.5-5.7) Ao Diam 3.15 cm (2.0-3.7) LVDs 3.74 cm (3.5-5.7) IVSd 0.48 cm (0.6-1.1) PWd 0.68 cm (0.6-1.1) EF (Teich) 55.40% FS 29.00% EDV (Teich) 133.60 mL TAPSE 2.62 (<1.7) ESV (Teich) 59.60 mL LV Diastology E Decel Time 243.00 (160-240 msec) E/A Ratio 1.2 MED E' 7.30 (< 7 cm/sec) E'/MED E' Ratio 12.82 (>14) LAT E' 9.30 (<10 cm/sec) E/LAT E' Ratio 10.06 (>14) Aortic Valve AO Peak GR. 10.50 mmHg Mitral Valve MV E Max Nabil. 94.00 (40-130 cm/s) MV A Velocity 79.00 (40-130 cm/s) E/A Ratio 1.18 MV Decel. Time 243.00 (160-240 ms) MV PHT 71.00 ms Pulmonary Valve PV Peak Velocity 91.00 (50-150 cm/s) Left Ventricle The left ventricle is normal size. The left ventricular systolic function is normal. The left ventricular ejection fraction is within the normal range. There is normal left ventricular wall thickness. There is normal LV segmental wall motion. The left ventricular diastolic function is normal. LVEF is 65%. Right Ventricle The right ventricle is normal size. The right ventricular systolic function is normal. Atria The left atrium size is normal. The right atrium size is normal. There is no Doppler evidence of interatrial shunt. Aortic Valve The aortic valve is mildly thickened. There is no aortic valvular stenosis. No aortic regurgitation is present. Mitral Valve The mitral valve is normal in structure. No evidence of mitral valve stenosis. Trace mitral regurgitation. Tricuspid Valve The tricuspid valve leaflets are thin and pliable. There is trace tricuspid valve regurgitation noted. Pulmonic Valve The pulmonary valve is normal in structure. Trace pulmonic regurgitation. Great Vessels The aortic root is normal in size. The ascending aorta is normal in size. IVC is normal in size and collapses >50% with inspiration. Pericardium There is no pericardial effusion. Other Information Study Quality: Adequate Conclusion Normal biventricular systolic function. Normal LV wall motion. No significant valvular stenosis or regurgitation. Electronically signed by : Ana Luisa Mcarthur, 09/30/2022 18:59:21
--- NOTE | 2022-09-30 11:48 | IR_ITS ---
APPROVED REPORT Patient [facility]: [facility] Teacher: BOBY Musa RT (R) PROCEDURES Left heart catheterization Left ventriculogram Selective coronary angiogram Drug-eluting stent deployment to the mid right coronary artery INDICATION Coronary artery disease, Acute non-ST elevation myocardial infarction Informed consent was obtained prior to the procedure. COMPLICATIONS None Estimated Blood Loss: Less than 10 mls TECHNIQUE One percent lidocaine used to anesthetize the right anterior aspect of the wrist. The right radial artery was accessed via the Seldinger technique. A 6 Bengali sheath was placed in the right radial artery. 2.5 mg of Verapamil, 800 mcg of nitroglycerin, 1mg Lidocaine and 5000 U Heparin were given through the arterial sheath. The papa catheter was also used to perform left heart catheterization, left ventriculogram and selective coronary angiogram. At the end of the diagnostic angiogram therapeutic heparin was administered giving a therapeutic ACT and the guide catheter was placed in the right coronary followed by Choice PT export wire. A 2 mm x 12 mm noncompliant balloon was deployed at 18 yasmeen predilated the stenosis and opening the vessel. A 2.5 x 38 mm [place] frontier stent was then deployed at 18 yasmeen in the mid to distal right coronary artery reducing the 100% occlusion to 0%. JANA 0 flow was present at the beginning of the procedure with JANA-3 flow at the end of the procedure. At the end of procedure 800 mcg of intracoronary nitroglycerin was administered and repeat angiography demonstrated excellent distal runoff. The apparatus was removed the sheath was removed and hemostasis was achieved and TR banding patient was transferred to the postop putting in stable condition ANGIOGRAPHIC RESULTS The left main artery Normal The left anterior descending artery Is proximally normal with mild 20 and 30% mid vessel stenoses The circumflex artery Is codominant and gives rise to a large first obtuse marginal artery which has a proximal 40% stenosis in the mid vessel 30 to 40% stenoses. The right coronary artery Codominant occluded after the RV marginal branch. Following revascularization the right coronary is widely patent with inline distal flow The CARREON ventriculogram reveals Preserved at 60 to 65% The left ventricular end-diastolic pressure 20 mmHg IMPRESSION Coronary artery disease as described above Successful stenting of the occluded right coronary artery 100% occlusion reduced to 0% with 1 drug-eluting stent Preserved ejection fraction Diffuse mild to moderate coronary disease as described above Mildly elevated LVEDP PLAN 1. Effient 60 mg now followed by 10 mg daily plus aspirin 81 mg daily 2. LDL 55 to be achieved with high intensity statin 3. Beta-blockers and TA inhibitors once hemodynamically able to tolerate medicines 4. Avoidance of tobacco products 5. Risk factor modification 6. Cardiac rehabilitation Electronically signed by : Lenny Major MD 09/30/2022 13:31:26
--- NOTE | 2022-09-30 11:49 | PC.NURSE ---
2nd IV placed to L FA (20g). Began LR infusion to this site. Pt also up to the bathroom and did void. Groin areas clipped. Pt called her and mother to update them on upcoming heart cath. Also placed 1 gold wedding band into a labeled denture cup and then placed in pt belonging bag. Trey Bentley RN witnessed. Pt black top, cony gina pants, 1 brown belt, and flip flops also placed in belongings bag. Pt is keeping her black cell phone out for right now to communicate with her family.
--- NOTE | 2022-09-30 11:59 | PC.NURSE ---
vascular at bedside for echo
--- NOTE | 2022-09-30 12:05 | PC.NURSE ---
DR REDDY SPEAKING WITH HOSPITALIST FOR ADMISSION
--- NOTE | 2022-09-30 12:06 | PC.NURSE ---
CARE MANAGEMENT NOTIFIED OF ADMISSION
--- NOTE | 2022-09-30 12:26 | EXP.HP ---
History of Present Illness *Admission Date: 09/30/22 *Reason for visit:: chest pain *History of present illness: Ms Wakefield is a 57 year old female with a pmh of cigarette nicotine dependence and cad s/p stent in 2014 who presented to the ED with chest pain since this morning. She woke up at around 5 AM substernal chest pain radiating to bilateral arms associated with dyspnea and diaphoresis. she took 3 baby aspirins and nitroglycerin SL x 3 doses 5 minutes apart and had chest pain subsided. She fell back asleep and woke up with worsening chest pain. her only home medication is a daily baby aspirin. She hasn't seen any physicians regularly. She was started on a nitro drip in the ED shortly after this her chest pain resolved. Currently she is asymptomatic. [facility] Disclaimer: The information contained in this section may have been updated after the patient was seen, as this information can be updated by other users. Social History Smoking Status: Current every day smoker alcohol intake: current current occupational status: employed Travel in the last 8 weeks: None household members: family housing: house Review of Systems Review of Systems Review of systems:: pertinent systems reviewed and negative unless documented below *Cardiovascular Cardiovascular: Reports chest pain and Reports dyspnea *Respiratory Respiratory: Reports dyspnea Meds Home Medications and Allergies Home Medications Medication Instructions Recorded Confirmed Type aspirin 81 mg tablet,delayed 81 mg PO DAILY Heart Disease 09/30/22 09/30/22 History release New Prescriptions to Start Prescriptions: Allergies Allergy/AdvReac Type Severity Reaction Status Date / Time No Known Allergies Allergy Verified 11/13/20 10:55 Exam Data for Last 24 hours Vital signs and Labs for Last 24 Hours: Temp Pulse Resp BP Pulse Ox O2 Del Method 97.7 F 94 H 18 195/111 H 99 Room Air 09/30/22 10:05 09/30/22 10:05 09/30/22 10:05 09/30/22 10:05 09/30/22 10:05 09/30/22 10:05 Laboratory Results - last 24 hr 09/30/22 10:05: WBC 8.9, RBC 5.08, Hgb 14.7, Hct 46.5, MCV 91.5, MCH 29.0, MCHC 31.7 L, RDW 13.4, Plt Count 231, MPV 8.8, Neut % (Auto) 68.2, Lymph % (Auto) 26.3, Hardy % (Auto) 4.4, Eos % (Auto) 0.6, Baso % (Auto) 0.5, Neut # (Auto) 6.1, Lymph # (Auto) 2.3, Hardy # (Auto) 0.4, Eos # (Auto) 0.1, Baso # (Auto) 0.1, PT 9.8 L, INR 0.90, APTT 26.5, D-Dimer 1.22 H, Sodium 141, Potassium 3.8, Chloride 104, Carbon Dioxide 28, Anion Gap 12.8, BUN 10, Creatinine 0.80, Estimated Creat Clear 101, Estimated GFR 74, Est GFR ( Amer) 90, Glucose 131 H, Calcium 9.9, Magnesium 1.9, Total Bilirubin 0.5, AST 37 H, ALT 28, Alkaline Phosphatase 100, Troponin I 0.29 H, Total Protein 7.5, Albumin 4.3, Globulin 3.2, Albumin/Globulin Ratio 1.3 I & O for Last 24 hours: Intake & Output 09/27/22 09/28/22 09/29/22 09/30/22 23:59 23:59 23:59 23:59 Weight 81.647 kg Constitutional Constitutional: no acute distress *Routine HEENT Exam Head: Present normocephalic Eye: Present EOMI and PERRL ENT: Present mucous membranes moist *Routine Neck Exam Neck: Present supple; Absent lymphadenopathy *Routine Respiratory Exam Respiratory: Present CTA bilaterally *Routine Cardiovascular Exam Cardiovascular: Present RRR *Routine Abdominal Exam Abdominal: Present soft and normoactive bowel sounds; Absent tenderness *Routine Rectal Exam Rectal:: deferred *Routine Genitalia Exam Genitalia:: deferred *Routine Extremities Exam Extremities: Absent cyanosis, clubbing or edema *Routine Skin Exam Skin: Present warm; Absent rash *Routine Neurological Exam Neurological: Present alert and oriented X3 Assessment and Plan *Assessment and plan (1) Chest pain: Status: Acute Category: Medical Code(s): R07.9 - Chest pain, unspecified (2) CAD (coronary artery disease): Status: Acute Category: Medical Code(s): I25.10 - Athe
--- NOTE | 2022-09-30 12:48 | PC.NURSE ---
@ [phone] Nelson Hollins RN stated clinical lab clerk is ready for pt, however they will need assistance collecting pt. supervisor photoengraving unavailable at this time. A [employer] RNs transported pt via wheelchair to clinical lab clerk, nitro gtt continuing.
--- NOTE | 2022-09-30 12:57 | PC.NURSE ---
REPORT GIVEN TO LYNETTE AKBAR AT THIS TIME. NOTIFIED THAT PT IS CURRENTLY IN INVESTMENT FUND MANAGER
--- NOTE | 2022-09-30 13:21 | EXP.CARD.CON ---
History of Present Illness History of Present Illness Consult date: 09/30/22 Requesting physician: Rozina Reynolds Consult reason: chest pain Chief complaint: chest pain History of present illness: This is a 57-year-old white female who presented to the emergency department with complaints of chest pain. She has a known history of coronary artery disease with 1 drug-eluting stent placed in 2014. The patient only takes aspirin daily and has not been to the doctor since she had her stents placed in 2014. The patient states that she woke up around 5 AM this morning with complaints of chest pain. She states that this was a substernal pressure sensation radiating to the bilateral arms associated with shortness of breath and diaphoresis the patient states that this was a severe pain. She took 3 baby aspirin and sublingual nitroglycerin. The chest pain resolved and the patient fell back asleep. She woke up again with worsening of her chest pain. The patient presented to the emergency department and was found to have a non-STEMI. She was started on a nitroglycerin drip and all of her chest pain has resolved. She denies any fever, chills, nausea, vomiting, diarrhea, PND or orthopnea. [facility] Disclaimer: The information contained in this section may have been updated after the patient was seen, as this information can be updated by other users. Medical History (Updated 09/30/22 @ 13:25 by Christine Porter APRN) Acute non-ST elevation myocardial infarction (NSTEMI) CAD (coronary artery disease) Tobacco use Unstable angina Social History Smoking Status: Current every day smoker alcohol intake: current current occupational status: employed Travel in the last 8 weeks: None household members: family housing: house Review of Systems Review of Systems Review of systems:: pertinent systems reviewed and negative unless documented below Constitutional Constitutional: Reports system reviewed and no additional complaints, except as documented Eyes Eyes: Reports system reviewed and no additional complaints, except as documented ENT Ears, Nose, Mouth, and Throat: Reports system reviewed and no additional complaints, except as documented *Cardiovascular Cardiovascular: Reports system reviewed and no additional complaints, except as documented, Reports chest pain, Reports chest pain at rest, Reports chest pain with activity, Reports diaphoresis, Reports dyspnea and Reports radiating jaw, neck or arm pain *Respiratory Respiratory: Reports system reviewed and no additional complaints, except as documented and Reports dyspnea *Gastrointestinal Gastrointestinal: Reports system reviewed and no additional complaints, except as documented *Genitourinary Genitourinary: Reports system reviewed and no additional complaints, except as documented *Musculoskeletal Musculoskeletal: Reports system reviewed and no additional complaints, except as documented Integumentary/Breasts Skin/Breast: Reports system reviewed and no additional complaints, except as documented *Neurologic Neurologic: Reports system reviewed and no additional complaints, except as documented Psychiatric Psychiatric: Reports system reviewed and no additional complaints, except as documented Endocrine Endocrine: Reports system reviewed and no additional complaints, except as documented Hematologic/Lymphatic Hematologic/Lymphatic: Reports system reviewed and no additional complaints, except as documented Allergic/Immunologic Allergic/Immunologic: Reports system reviewed and no additional complaints, except as documented Exam Data for Last 24 hours Vital signs and Labs for Last 24 Hours: Temp Pulse Resp BP Pulse Ox O2 Del Method 97.9 F 69 17 122/76 96 Room Air 09/30/22 12:50 09/30/22 12:50 09/30/22 12:50 09/30/22 12:50 09/30/22 12:30 09/30/22 12:50 Laboratory Results - last 24 hr 09/30/22 10:05: WBC 8.9, RBC 5.08, Hgb 14.7, Hct 46.5, MCV 91.5, MCH 29.0, MCHC 31.7 L
[2022-09-30 13:45] LABS: CATHL Activated Clotting Time 303 SEC (74-125)
--- NOTE | 2022-09-30 16:00 | PC.NURSE ---
dr ponce stated okay to cancel troponins at this time
--- NOTE | 2022-09-30 17:08 | PC.NURSE ---
Band removed at 16:45, 2x2 and tegaderm placed.
[2022-10-01] VITALS: BP 102/60; PULSE 50; PULSE 71; RESP 16; TEMP 36.5; O2SAT 95
[2022-10-01 04:00] VITALS: BP 112/65; PULSE 50; PULSE 70; RESP 18; TEMP 36.6; O2SAT 92; BMI 31.3
--- NOTE | 2022-10-01 04:31 | PC.NURSE ---
Patient status post cardiac cath with one stent placed. Dressing to right radial site intact, no bleeding noted. Post op vitals stable. No complaints voiced at this time. Call rich and personal items in reach, POC ongoing.
--- NOTE | 2022-10-01 06:21 | ECG_ITS ---
APPROVED REPORT Exam: Resting ECG HR:60 bpm ECG Measurements Heart Rate 60 AXES ND 187 P 55 QRSd 91 QRS 58 QT 427 T 29 QTc 428 Conclusion SINUS RHYTHM NORMAL ECG UNCONFIRMED REPORT Electronically signed by : Claudio Denney MD 10/01/2022 21:00:57
--- NOTE | 2022-10-01 06:27 | PC.NURSE ---
Patient had episode of sinus pause on tele. Assessed patient, patient reports she has no chest pain or syncopal episodes this shift. Pedrito notified. EKG performed. Hospitalist notified also.
--- NOTE | 2022-10-01 07:08 | EXP.DC.SUM ---
General Admission date:: 09/30/22 HPI HPI HPI: Ms Wakefield is a 57 year old female with a pmh of cigarette nicotine dependence and cad s/p stent in 2014 who presented to the ED with chest pain since this morning. She woke up at around 5 AM substernal chest pain radiating to bilateral arms associated with dyspnea and diaphoresis. she took 3 baby aspirins and nitroglycerin SL x 3 doses 5 minutes apart and had chest pain subsided. She fell back asleep and woke up with worsening chest pain. her only home medication is a daily baby aspirin. She hasn't seen any physicians regularly. She was started on a nitro drip in the ED shortly after this her chest pain resolved. Currently she is asymptomatic. Exam Data for Last 24 hours Vital signs and Labs for Last 24 Hours: Temp Pulse Resp BP Pulse Ox O2 Del Method O2 Flow Rate 97.9 F 70 18 112/65 92 L Room Air 5 10/01/22 04:00 10/01/22 04:00 10/01/22 04:00 10/01/22 04:00 10/01/22 04:00 10/01/22 06:21 09/30/22 18:19 Laboratory Results - last 24 hr 09/30/22 10:05: WBC 8.9, RBC 5.08, Hgb 14.7, Hct 46.5, MCV 91.5, MCH 29.0, MCHC 31.7 L, RDW 13.4, Plt Count 231, MPV 8.8, Neut % (Auto) 68.2, Lymph % (Auto) 26.3, [place] % (Auto) 4.4, Eos % (Auto) 0.6, Baso % (Auto) 0.5, Neut # (Auto) 6.1, Lymph # (Auto) 2.3, Grant # (Auto) 0.4, Eos # (Auto) 0.1, Baso # (Auto) 0.1, PT 9.8 L, INR 0.90, APTT 26.5, D-Dimer 1.22 H, Sodium 141, Potassium 3.8, Chloride 104, Carbon Dioxide 28, Anion Gap 12.8, BUN 10, Creatinine 0.80, Estimated Creat Clear 101, Estimated GFR 74, Est GFR ( Amer) 90, Glucose 131 H, Calcium 9.9, Magnesium 1.9, Total Bilirubin 0.5, AST 37 H, ALT 28, Alkaline Phosphatase 100, Troponin I 0.29 H, Total Protein 7.5, Albumin 4.3, Globulin 3.2, Albumin/Globulin Ratio 1.3 09/30/22 13:08: Activated Clotting Time 303 H* I & O for Last 24 hours: Intake & Output 09/28/22 09/29/22 09/30/22 10/01/22 23:59 23:59 23:59 23:59 Intake Total 240 / 240 Output Total 0 / 0 Balance 240 / 240 0 / 0 Weight 81.647 kg 88.405 kg Results Data Completed and Pending Labs on day of discharge: Labs from last 24 hours 09/30/22 09/30/22 13:08 10:05 WBC 8.9 RBC 5.08 Hgb 14.7 Hct 46.5 MCV 91.5 MCH 29.0 MCHC 31.7 L RDW 13.4 Plt Count 231 MPV 8.8 Neut % (Auto) 68.2 Lymph % (Auto) 26.3 Grant % (Auto) 4.4 Eos % (Auto) 0.6 Baso % (Auto) 0.5 Neut # (Auto) 6.1 Lymph # (Auto) 2.3 Grant # (Auto) 0.4 Eos # (Auto) 0.1 Baso # (Auto) 0.1 PT 9.8 L INR 0.90 APTT 26.5 Activated Clotting Time 303 H* D-Dimer 1.22 H Sodium 141 Potassium 3.8 Chloride 104 Carbon Dioxide 28 Anion Gap 12.8 BUN 10 Creatinine 0.80 Estimated Creat Clear 101 Estimated GFR 74 Est GFR ( Amer) 90 Glucose 131 H Calcium 9.9 Magnesium 1.9 Total Bilirubin 0.5 AST 37 H ALT 28 Alkaline Phosphatase 100 Troponin I 0.29 H Total Protein 7.5 Albumin 4.3 Globulin 3.2 Albumin/Globulin Ratio 1.3 DS: Diagnosis Discharge Diagnosis (1) Acute non-ST elevation myocardial infarction (NSTEMI): Status: Acute Code(s): I21.4 - Non-ST elevation (NSTEMI) myocardial infarction (2) CAD (coronary artery disease): Status: Acute Code(s): I25.10 - Atherosclerotic heart disease of [place] coronary artery without angina pectoris Qualifiers: Associated angina: with unstable angina Coronary Disease-Associated Artery/Lesion type: [place] artery [place] vs. transplanted heart: [place] heart Qualified Code(s): I25.110 - Atherosclerotic heart disease of [place] coronary artery with unstable angina pectoris (3) Tobacco use: Status: Acute Code(s): Z72.0 - Tobacco use Meds Home Medications and Allergies Home Medications Medication Instructions Recorded Confirmed Type aspirin 81 mg tablet,delayed 81 mg PO DAILY Heart Disease 09/30/22 09/30/22 History release New Prescript
[2022-10-01 07:31] VITALS: BP 113/74; PULSE 63; RESP 17; TEMP 36.6; O2SAT 93
--- NOTE | 2022-10-01 07:33 | EXP.DC.SUM ---
General Admission date:: 09/30/22 Discharge date: 10/01/22 HPI HPI HPI: Forwarded from admission H&P: Ms Wakefield is a 57 year old female with a pmh of cigarette nicotine dependence and cad s/p stent in 2014 who presented to the ED with chest pain since this morning. She woke up at around 5 AM substernal chest pain radiating to bilateral arms associated with dyspnea and diaphoresis. she took 3 baby aspirins and nitroglycerin SL x 3 doses 5 minutes apart and had chest pain subsided. She fell back asleep and woke up with worsening chest pain. her only home medication is a daily baby aspirin. She hasn't seen any physicians regularly. She was started on a nitro drip in the ED shortly after this her chest pain resolved. Currently she is asymptomatic. Hospital Course Hospital Course Hospital Course: #nstemi #hypertensive urgency #cad #cigarette nicotine dependence Initial troponin is 0.29. Cardiology performed left heart catheterization with successful stenting of an occluded RCA. Her daily aspirin was resumed and she was started on effient and atorvastatin. She will need to follow up with her PCP in 1 week and her Supervisor [facility] in 1 month. Exam Data for Last 24 hours Vital signs and Labs for Last 24 Hours: Temp Pulse Resp BP Pulse Ox O2 Del Method O2 Flow Rate 97.9 F 70 18 112/65 92 L Room Air 5 10/01/22 04:00 10/01/22 04:00 10/01/22 04:00 10/01/22 04:00 10/01/22 04:00 10/01/22 06:21 09/30/22 18:19 Laboratory Results - last 24 hr 09/30/22 10:05: WBC 8.9, RBC 5.08, Hgb 14.7, Hct 46.5, MCV 91.5, MCH 29.0, MCHC 31.7 L, RDW 13.4, Plt Count 231, MPV 8.8, Neut % (Auto) 68.2, Lymph % (Auto) 26.3, [place] % (Auto) 4.4, Eos % (Auto) 0.6, Baso % (Auto) 0.5, Neut # (Auto) 6.1, Lymph # (Auto) 2.3, [place] # (Auto) 0.4, Eos # (Auto) 0.1, Baso # (Auto) 0.1, PT 9.8 L, INR 0.90, APTT 26.5, D-Dimer 1.22 H, Sodium 141, Potassium 3.8, Chloride 104, Carbon Dioxide 28, Anion Gap 12.8, BUN 10, Creatinine 0.80, Estimated Creat Clear 101, Estimated GFR 74, Est GFR ( Amer) 90, Glucose 131 H, Calcium 9.9, Magnesium 1.9, Total Bilirubin 0.5, AST 37 H, ALT 28, Alkaline Phosphatase 100, Troponin I 0.29 H, Total Protein 7.5, Albumin 4.3, Globulin 3.2, Albumin/Globulin Ratio 1.3 09/30/22 13:08: Activated Clotting Time 303 H* I & O for Last 24 hours: Intake & Output 09/28/22 09/29/22 09/30/22 10/01/22 23:59 23:59 23:59 23:59 Intake Total 240 / 240 Output Total 0 / 0 Balance 240 / 240 0 / 0 Weight 81.647 kg 88.405 kg Results Data Completed and Pending Labs on day of discharge: Labs from last 24 hours 09/30/22 09/30/22 13:08 10:05 WBC 8.9 RBC 5.08 Hgb 14.7 Hct 46.5 MCV 91.5 MCH 29.0 MCHC 31.7 L RDW 13.4 Plt Count 231 MPV 8.8 Neut % (Auto) 68.2 Lymph % (Auto) 26.3 [place] % (Auto) 4.4 Eos % (Auto) 0.6 Baso % (Auto) 0.5 Neut # (Auto) 6.1 Lymph # (Auto) 2.3 [place] # (Auto) 0.4 Eos # (Auto) 0.1 Baso # (Auto) 0.1 PT 9.8 L INR 0.90 APTT 26.5 Activated Clotting Time 303 H* D-Dimer 1.22 H Sodium 141 Potassium 3.8 Chloride 104 Carbon Dioxide 28 Anion Gap 12.8 BUN 10 Creatinine 0.80 Estimated Creat Clear 101 Estimated GFR 74 Est GFR ( Amer) 90 Glucose 131 H Calcium 9.9 Magnesium 1.9 Total Bilirubin 0.5 AST 37 H ALT 28 Alkaline Phosphatase 100 Troponin I 0.29 H Total Protein 7.5 Albumin 4.3 Globulin 3.2 Albumin/Globulin Ratio 1.3 DS: Diagnosis Discharge Diagnosis (1) Acute non-ST elevation myocardial infarction (NSTEMI): Status: Acute Code(s): I21.4 - Non-ST elevation (NSTEMI) myocardial infarction (2) CAD (coronary artery disease): Status: Acute Code(s): I25.10 - Atherosclerotic heart disease of [place] coronary artery without angina pectoris Qualifiers: Associated angina: with unstable angina Coronary Disease-Associated Artery/Lesion type: [place] artery
[2022-10-01 07:40] VITALS: O2SAT 100
[2022-10-01 08:00] VITALS: PULSE 80
[2022-10-01 08:18] LABS: Basophils % 0.3 % (0.1-2.0); Eosinophils # 0.1 K/mm3 (0.0-0.4); Eosinophils % 0.7 % (0.1-12.0); Hematocrit 40.7 % (37.0-47.0); Lymphocytes # 2.2 K/mm3 (0.7-4.5); Lymphocytes % 33.2 % (10-50); Mean Corpuscular HGB Conc 32.5 g/dL (31.8-35.4); Mean Corpuscular Hemoglobin 29.7 pg (27.0-31.2); Mean Corpuscular Volume 91.4 fl (81-99); Mean Platelet Volume 9.3 fl (7.4-10.4); Monocytes # 0.5 K/mm3 (0.1-1.0); Monocytes % 6.8 % (1.7-9.3); Neutrophils # 3.9 K/mm3 (1.8-7.8); Neutrophils % 58.9 % (37.0-80.0); Platelet Count 173 K/mm3 (142-424); Red Blood Count 4.45 M/mm3 (4.20-5.40); Red Cell Distribution Width 13.6 % (11.5-17.5); White Blood Count 6.6 K/mm3 (4.8-10.8)
[2022-10-01 08:19] LABS: Chloride 108 mmol/L (98-107); Potassium 3.8 mmoL/L (3.5-5.1); Sodium 141 mmol/L (136-145)
[2022-10-01 08:22] LABS: Anion Gap 9.8 mEq/L (5-15); Blood Urea Nitrogen 9 mg/dl (7-17); Calcium 9.1 mg/dl (8.4-10.2); Carbon Dioxide 27 mmol/L (22.0-30.0); Cholesterol 228 mg/dl (140-200); Creatinine Clearance Estimated 110 mL/min (50-200); Estimated Glomerular Filt Rate 74 ml/min (>60); GFR (African American) 90 ML/MIN (>60); Glucose 95 mg/dl (74-100); Triglycerides 197 mg/dl (30-150); VLDL Cholesterol 39 mg/dL (0-40)
[2022-10-01 08:23] LABS: Chol/HDL Ratio 6.2 (1-3.5); HDL Cholesterol 37 mg/dl (40-60)
[2022-10-01 08:33] LABS: Direct LDL Cholesterol 132.06 mg/dL (100-129)
[2022-10-01 08:35] LABS: Hemoglobin 13.3 g/dL (12.2-16.2)
--- NOTE | 2022-10-01 08:46 | P.CONPHA_ITS ---
[facility] [employer] Specialist Discharge Med [employer] Removing Supervisor: Vickyhamlet Solis has received discharge medication counseling on the following medications: MD STARTED PATIENT ON EFFIENT 10 MG DAILY AND ATORVASTATIN 40 MG HS. PATIENT CURRENTLY TAKING ASPIRIN 81 MG DAILY. MD HOLDING TA/ARB AND BETABLOCKER UNTIL MORE HEMODYNAMICALLY STABLE PER NOTE.
[2022-10-01 10:17] LABS: Hemoglobin A1C 5.5 % (4.0-6.0)
[2022-10-01 11:23] VITALS: BP 132/59; PULSE 59; RESP 18; TEMP 36.7; O2SAT 98
--- NOTE | 2022-10-03 14:48 | CARE MANAGER ---
Spoke with patient for post-discharge phone interview, no issues noted.
== END 2022-10-01 12:31 | disposition home or self-care (01) | DRG 249 ==
LOC: ER 11:48 → 2ND 14:51
PROVIDERS: Internal Medicine; Admitting Provider Internal Medicine; Emergency Provider Student in an Organized Health Care Education/Training Program; PCP Family Medicine; Visit Provider Internal Medicine
PROC: 02H03DZ Insertion of Intraluminal Device into Coronary Artery, One Artery, Percutaneous Approach (ICD-10-PCS; principal; 2022-09-30 13:15)
DX: I21.4 Non-ST elevation (NSTEMI) myocardial infarction (principal); I25.2 Old myocardial infarction; I25.110 Atherosclerotic heart disease of native coronary artery with unstable angina pectoris; Z95.5 Presence of coronary angioplasty implant and graft; F17.200 Nicotine dependence, unspecified, uncomplicated; I16.0 Hypertensive urgency
CPT/HCPCS: 36415; 71045; 80048; 80053; 80061; 83036; 83735; 84484; 85025; 85347; 85378; 85610; 85730; 92941; 93005; 93306; 93458; 99152; 99291; C1725; C1769; C1876; C9606; J1644; Q9967